=== PATIENT | male | born 1945 | race Caucasian/White ===

== ENCOUNTER 2018-02-10 15:55 | Emergency (ER) | payer OTHER ==
[~2018-02-10] VITALS: Ht 186 cm; Wt 87.0 kg
[2018-02-10] MEDS ORDERED: DOXYCYCLINE HY100 MG (17:02)
[2018-02-10] MEDS ORDERED: DICLOFENAC POTA50 MG PO (17:05)
[2018-02-10] MEDS ORDERED: TOVIAZ8 MG (17:06)
[2018-02-10] MEDS ORDERED: BACTRIM DS TAB1 EACH PO (17:24)
== END 2018-02-10 18:06 | disposition home or self-care (01) ==
LOC: ED 15:55
DX: L03.113 Cellulitis of right upper limb (principal); Z79.899 Other long term (current) drug therapy
CPT/HCPCS: 96372; 99283; J0696